=== PATIENT | male | born 1950 | race Caucasian/White ===

== ENCOUNTER 2018-12-15 11:55 | Day surgery (SDC) | payer MEDICARE ==
[~2018-12-15 11:55] MED LIST: ACETAMINOPHEN 1,000 MG/100 ML BTL IV ONE; CEFAZOLIN 2 Gram 2 GM/50 ML BAG IVPB ONE
[2018-12-15] MEDS ORDERED: BUPIVACAINE 0.5% W/EPI MPF 30 ML VIAL IVP ONE (11:56)
[2018-12-15] MEDS ORDERED: PROPOFOL 10 MG/ML VIAL IV ONE (11:56)
[2018-12-15] MEDS ORDERED: LIDOCAINE 2% MDV (20MG/ML) 20ML VIAL IV ONE (11:56)
[2018-12-15] MEDS ORDERED: METHYLPREDNISOLONE 40MG/VIAL IM ONE (11:56)
[2018-12-15] MEDS ORDERED: DEXAMETHASONE 4 MG/ML 1ML VIAL IVP ONE (11:56)
[2018-12-15] MEDS ORDERED: FENTANYL PF 100MCG/2ML VIAL IV ONE (11:56)
[2018-12-15] MEDS ORDERED: ONDANSETRON HCL IV 4 MG/2 ML VIAL IVP ONE (11:56)
[2018-12-15] MEDS ORDERED: MIDAZOLAM HCL 2MG/2ML VIAL IV ONE (11:56)
[2018-12-15] MEDS ORDERED: EPHEDRINE SULFATE 50 MG/ML ML IV ONE (11:56)
[2018-12-15] MEDS ORDERED: MORPHINE SULFATE 4 MG/ML VIAL ONE (14:23)
--- NOTE | 2018-12-16 09:00 | Operative Note ---
DATE OF SURGERY: 12/15/2018 Surgeon: Jose Alfredo Hassan M.D. PREOPERATIVE DIAGNOSIS: Internal derangement of the right knee. POSTOPERATIVE DIAGNOSES: 1. Grade 3 chondromalacia of the patella. 2. Radial flap tear involving the posterior horn of the medial meniscus. 3. Radial tear involving the lateral horn of the lateral meniscus. 4. 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 OPERATION: Right knee arthroscopy with partial medial and lateral meniscectomy. Anesthesia: General. PREPARATION: Chloraprep. INDIVIDUAL CONSIDERATIONS: None. PROCEDURE: The patient was taken to the operating room and placed supine on the operating room table. He had a successful induction with general anesthetic. The right lower extremity was prepped and draped in the usual fashion. The patient had a superior lateral inflow cannula placed. The skin was infiltrated with 0.5% Marcaine with epinephrine prior. The knee was then inflated with normal saline. An inferior medial and an inferior lateral portal were made in a similar fashion. The arthroscope was introduced through the inferior lateral portal up into the pouch. The patellofemoral joint showed quite a bit of scar in the pouch, it was debrided. Grade 3 changes of the patella and some fibrocartilage in the notch, the grade 3 changes were smoothed with the shaver. Medially, he had an obvious radial flap tear involving the posterior horn of the medial meniscus. This was debrided back to a stable rim with basket forceps and a shaver. Articular cartilage looked good. In the notch, there was scar which was debrided, the cruciates were normal laterally. There was a radial tear involving the lateral horn of the lateral meniscus which was debrided back to a stable rim with basket forceps and a shaver and some grade 3 changes on the femoral condyle, which were debrided. The tibia plateau looked good. The knee was then irrigated out with saline to remove floating debris. The portals were closed with pako. 20 mL of 0.25% plain Marcaine along with 40 mg of Depo-Medrol and 4 mg of morphine were injected into the knee and a sterile bulky compressive dressing was applied. The patient tolerated the procedures well. The needle and sponge counts were correct. Estimated blood loss was minimal. He was taken back to recovery in good condition. There were no complications. MYKE
== END 2018-12-15 16:08 | disposition home or self-care (01) ==
LOC: SUR 11:55
PROVIDERS: ATTEND Orthopaedic Surgery
DX: S83.241A Other tear of medial meniscus, current injury, right knee, initial encounter (principal); S83.281A Other tear of lateral meniscus, current injury, right knee, initial encounter; M22.41 Chondromalacia patellae, right knee; M94.261 Chondromalacia, right knee; M10.9 Gout, unspecified; E03.9 Hypothyroidism, unspecified
CPT/HCPCS: 29880; 01400; J2405; J3010; J0690; J2270; J1030

== ENCOUNTER 2018-12-28 13:01 | Day surgery (SDC) | payer MEDICARE ==
[2018-12-28] MEDS ORDERED: LIDOCAINE 2% MDV (20MG/ML) 20ML VIAL IV ONE (13:02)
[2018-12-28] MEDS ORDERED: ONDANSETRON HCL IV 4 MG/2 ML VIAL IVP ONE (13:02)
[2018-12-28] MEDS ORDERED: SEVOFLURANE 250 ML INH ONE (13:02)
[2018-12-28] MEDS ORDERED: HYDROCODONE/APAP 7.5/325MG TABLET PO ONE (13:02)
[2018-12-28] MEDS ORDERED: PROPOFOL 10 MG/ML VIAL IV ONE (13:02)
[2018-12-28] MEDS ORDERED: MORPHINE SULFATE 10 MG/ML VIAL IVP ONE (13:02)
[2018-12-28] MEDS ORDERED: DAPTOMYCIN 500 MG/VIAL IV ONE (15:00)
[2018-12-28] MEDS ORDERED: ERTAPENEM SODIUM 1 G in 0.9 % SODIUM CHLORIDE 100ML 100 ML IV ONE (15:00)
[2018-12-28] MEDS ORDERED: MORPHINE SULFATE 4 MG/ML VIAL ONE (15:38)
[2018-12-28] MEDS ORDERED: BUPIVACAINE 0.5% W/EPI MPF 30 ML VIAL SQ ONE (16:24)
[2018-12-28 22:52] LABS: CRYSTALLOID MATERIAL Not Present
--- NOTE | 2018-12-29 10:00 | Operative Note ---
DATE OF SURGERY: 12/28/2018 PREOPERATIVE DIAGNOSIS: Septic right knee. POSTOPERATIVE DIAGNOSIS: Septic right knee. OPERATION: Right knee irrigation and complete synovectomy. Staff Surgeon: Jose Alfredo Hassan MD Anesthesia: General. Preparation: Chloraprep. Individual Considerations: None. PROCEDURE: The patient was taken to the operating room and placed supine on the operating room table. He had a successful induction with a general anesthetic. His right lower extremity was prepped and draped in the usual fashion. The patient's previous superolateral portal was debrided and an inflow cannula was placed. About 80 mL of purulent fluid was drained out. I sent fluid for culture, Gram stain, crystals, cell count, differential, and glucose. An inferomedial and an inferolateral portal were made in a similar fashion after infiltrating the skin with 0.5% Marcaine with epinephrine prior. Again the portals were debrided sharply with an 11-blade knife. The knee was then inflated with normal saline. The arthroscope was introduced through inferolateral portal up into the pouch. There was fibrinous debris and clot within the knee. No real significant synovitis. I would say mild because the sepsis here was so early. Previous meniscectomies were identified. Previous chondromalacia of his patella identified. Nothing new was seen in terms of pathology in the knee. A shaver was introduced and fibrinous debris and clot was irrigated out and synovectomy was performed completely in both gutters and the pouch. Then after I finished this, I irrigated it out with an additional 6 liters of Betadine and saline, total irrigation approached 10L. The inferior portals were closed with pako and suture. Superolaterally, I placed 2 Hemovacs through the portal and then to a suction drain. I then placed a sterile bulky compressive dressing and Jose wrap. The patient tolerated procedure well. Needle and sponge counts were correct. Estimated blood loss was minimal. The patient was taken back to recovery in good condition. There were no complications. MYKE
== END 2018-12-28 18:00 | disposition home or self-care (01) ==
LOC: SUR 13:01
PROVIDERS: ATTEND Orthopaedic Surgery
DX: M00.861 Arthritis due to other bacteria, right knee (principal); E03.9 Hypothyroidism, unspecified
CPT/HCPCS: 29871; 29876; 01400; J1335; J2405; J0878; J2270